=== PATIENT | female | born 1965 | race Native Hawaiian/Other Pacific Islander ===

== ENCOUNTER 2018-11-16 08:33 | Emergency (ER) | payer OTHER ==
[2018-11-16 08:49] VITALS: RESP 16; TEMP 97.7
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
--- NOTE | 2018-11-16 09:59 | RAD ---
Date of service: 11/16/2018 PROCEDURE: Cervical Spine Radiographs. HISTORY: Pain. COMPARISON: None available. TECHNIQUE: 3 views obtained. FINDINGS: BONES: Cervical spine straightening-can be seen with spasm and/or positioning.. No fracture. Dens Intact. Endplate spondylosis C5-6 DISC SPACES: C5-6 narrowing SOFT TISSUES: No prevertebral soft tissue swelling. OTHER FINDINGS: None. IMPRESSION: No fracture appreciated. C5-6 spondylosis with degenerative disc space narrowing here. Cervical spine straightening-as above
[2018-11-16 10:05] VITALS: BP 116/79; PULSE 78
[2018-11-16 10:07] VITALS: O2SAT 100
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
== END 2018-11-16 10:18 | disposition home or self-care (01) ==
LOC: C.ER 08:33
DX: S13.4XXA Sprain of ligaments of cervical spine, initial encounter (principal); S20.219A Contusion of unspecified front wall of thorax, initial encounter; V49.50XA Passenger injured in collision with unspecified motor vehicles in traffic accident, initial encounter; W22.10XA Striking against or struck by unspecified automobile airbag, initial encounter; Y92.410 Unspecified street and highway as the place of occurrence of the external cause